=== PATIENT | male | born 1955 | race Caucasian/White ===

== ENCOUNTER 2018-07-12 08:00 | Day surgery (SDC) | payer OTHER ==
[~2018-07-12] VITALS: Ht 175.3 cm; Wt 79.9 kg
== END 2018-07-12 09:48 | disposition home or self-care (01) ==
LOC: ORSCSDS 08:00
PROVIDERS: Surgery
PROC: 0DJD8ZZ Inspection of Lower Intestinal Tract, Via Natural or Artificial Opening Endoscopic (ICD-10-PCS; principal; 2018-07-12 09:15)
DX: Z12.11 Encounter for screening for malignant neoplasm of colon (principal)
CPT/HCPCS: J7120

== ENCOUNTER 2021-09-13 07:14 | Day surgery (SDC) | payer OTHER ==
[~2021-09-13] VITALS: Ht 175.3 cm; Wt 78.6 kg
--- NOTE | 2021-09-13 09:06 | NUR ---
09/13/21 0906 Tigre Dutton 2 DURAPREP STICKS USED, ONE FOR THE ABDOMEN AND THE OTHER FOR THE GROIN.
--- NOTE | 2021-09-13 11:32 | NUR ---
09/13/21 1132 SAAD STILL DEEP BREATHING EXERCISEM EDUCATION/ INCENTIVE SPIROMETER EDUCATION AND GIVEN; LEG EXERCISE TO PREVENT BLOOD CLOTS EDUCATION GIVEN AND DIMENSTRATED
== END 2021-09-13 11:42 | disposition home or self-care (01) ==
LOC: ORSCSDS 07:14
PROVIDERS: Surgery
PROC: 0YU50JZ Supplement Right Inguinal Region with Synthetic Substitute, Open Approach (ICD-10-PCS; principal; 2021-09-13 08:15)
DX: K40.90 Unilateral inguinal hernia, without obstruction or gangrene, not specified as recurrent (principal); Z87.891 Personal history of nicotine dependence
CPT/HCPCS: A9270; C1781; J0690; J1100; J2250; J2405; J2704; J3010; J7120